=== PATIENT | female | born 1970 | race Caucasian/White ===

== ENCOUNTER → 2021-02-21 08:18 | Outpatient (CLI) | payer MEDICARE, SELFPAY ==
--- NOTE | ~2021-02-21 | CT_ITS ---
EXAMINATION: CT abdomen pelvis w con EXAM DATE: 02/21/2021 09:11 INDICATION: Chronic constipation, abdominal bloating, abdominal distention. TECHNIQUE: Spiral CT of the abdomen and pelvis was performed following intravenous injection of 100 m L Omnipaque 350. Axial, coronal and sagittal images of the abdomen and pelvis were reviewed. The do se-length product (DLP) for this examination was 173.25 mGy-cm. The exposure was tailored according to patient size (auto mA exposure control), and iterative reconstruction (ASIR) was used as additiona l dose reduction technique. There is no prior study for comparison. FINDINGS: The liver, spleen, adrenal glands and pancreas are unremarkable. There are cholecystectomy clips. Portal and splenic veins are patent. Kidneys enhance symmetrically. There is no hydronephr osis. The uterus is unremarkable. The bladder is unremarkable. There is no retroperitoneal or pe lvic lymphadenopathy. The ascending and transverse colon are moderately distended with low-density loose stool, to the sple jonnie flexure. The descending and sigmoid colon nearly completely collapsed with small amount of fluid. There is prominent mucosal enhancement to colonic mucosa and mild nonspecific edema throughout the m esentery, and surrounding the rectosigmoid colon. These findings are nonspecific, with some possible considerations including celiac disease, gastroenteritis, ulcerative colitis. No small bowel dilation or evidence to specifically suggest terminal ileitis. No free intraperitoneal gas. The heart is no rmal in size. There are no pericardial or pleural effusions. The lung bases are unremarkable. Ther e are no osteoblastic or osteolytic lesions identified. IMPRESSION: Nonspecific mesenteric, colonic findings described above. Possible considerations include celiac disease, gastroenteritis, ulcerative colitis. Reviewed, dictated and finalized at location A. [facility]
== END ==
DX: K59.00 Constipation, unspecified (principal); R14.0 Abdominal distension (gaseous)
CPT/HCPCS: 74177; Q9967